=== PATIENT | female | born 1965 | race Two or more races ===

== ENCOUNTER 2021-01-01 09:00 | Inpatient (IN) | payer OTHER ==
[~2021-01-01] VITALS: Ht 152.4 cm; Wt 52.6 kg
[~2021-01-01 09:00] MED LIST: [UNRECOGNIZED DRUG - OTHER] PO
== END 2021-01-15 10:43 | disposition home or self-care (01) | DRG 740 ==
LOC: O/R 01-07 06:04 → SURH 01-07 09:00 → SURG 01-07 18:19
PROVIDERS: ADMIT Obstetrics & Gynecology Gynecologic Oncology; ATTEND Obstetrics & Gynecology Gynecologic Oncology
PROC: 0DTN0ZZ Resection of Sigmoid Colon, Open Approach (ICD-10-PCS; 2021-01-07)
PROC: 0DTP0ZZ Resection of Rectum, Open Approach (ICD-10-PCS; 2021-01-07)
PROC: 0DTH0ZZ Resection of Cecum, Open Approach (ICD-10-PCS; 2021-01-07)
PROC: 07BC0ZZ Excision of Pelvis Lymphatic, Open Approach (ICD-10-PCS; 2021-01-07)
PROC: 0UT20ZZ Resection of Bilateral Ovaries, Open Approach (ICD-10-PCS; 2021-01-07)
PROC: 0UT70ZZ Resection of Bilateral Fallopian Tubes, Open Approach (ICD-10-PCS; 2021-01-07)
PROC: 0UT90ZZ Resection of Uterus, Open Approach (ICD-10-PCS; principal; 2021-01-07 13:00)
DX: C54.1 Malignant neoplasm of endometrium (principal); C77.5 Secondary and unspecified malignant neoplasm of intrapelvic lymph nodes; K91.89 Other postprocedural complications and disorders of digestive system; K56.7 Ileus, unspecified; D64.9 Anemia, unspecified; D13.39 Benign neoplasm of other parts of small intestine; D12.7 Benign neoplasm of rectosigmoid junction; D12.6 Benign neoplasm of colon, unspecified; D19.1 Benign neoplasm of mesothelial tissue of peritoneum